=== PATIENT | female | born 1985 | race Caucasian/White ===

== ENCOUNTER 2016-10-21 09:32 | Emergency (ER) | payer MEDICAID ==
[~2016-10-21] VITALS: Ht 167.6 cm; Wt 77.4 kg
[~2016-10-21 09:32] MED LIST: LAMO200T PO; LORA0.5T PO; NITR100C56 PO; OXYC-302 PO
[2016-10-21 09:38] VITALS: BP 130/67
[2016-10-21] MEDS ORDERED: ONDANSETRON 2MG/ML, 2ML ONE (10:12)
[2016-10-21] MEDS ORDERED: MECLIZINE CHEWABLE 25 MG TAB ONE (10:12)
[2016-10-21] MEDS ORDERED: FAMOTIDINE 20 MG/2 ML ONE (10:12)
[2016-10-21] MEDS ORDERED: LORazepam 2 MG/ML, 1ML ONE (10:13)
[2016-10-21] MEDS ORDERED: ONDANSETRON 2MG/ML, 2ML IVPush ONE (10:30)
[2016-10-21] MEDS ORDERED: SODIUM CHLORIDE 0.9% 1,000ML IVBOLUS ONE (10:30)
[2016-10-21] MEDS ORDERED: MECLIZINE CHEWABLE 25 MG TAB PO ONE (10:30)
[2016-10-21] MEDS ORDERED: FAMOTIDINE 20 MG/2 ML IVP ONE (10:30)
[2016-10-21] MEDS ORDERED: LORazepam 2 MG/ML, 1ML IVPush ONE (10:30)
[2016-10-21] MEDS ORDERED: SODIUM CHLORIDE FLUSH 10ML SYR IVF ONE (10:30)
[2016-10-21 10:45] LABS: HEMOGLOBIN 12.6 g/dL (11.7-16.4)
[2016-10-21 10:46] LABS: ASPARTATE AMINO TRANSFERASE 13 U/L (15-37); BLOOD UREA NITROGEN 16 mg/dL (7-18)
[2016-10-21] MEDS ORDERED: FAMOTIDINE 20 MG TABLET ONE (10:57)
[2016-10-21] MEDS ORDERED: LORazepam 1MG TABLET ONE (10:57)
[2016-10-21] MEDS ORDERED: ONDANSETRON ODT 4 MG ONE (10:58)
[2016-10-21] MEDS ORDERED: FAMOTIDINE 20 MG TABLET PO ONE (11:00)
[2016-10-21] MEDS ORDERED: ONDANSETRON ODT 4 MG PO ONE (11:00)
[2016-10-21] MEDS ORDERED: LORazepam 0.5MG TABLET PO ONE (11:00)
== END 2016-10-21 11:50 | disposition home or self-care (01) ==
LOC: ED 10:30
DX: K29.00 Acute gastritis without bleeding (principal); R42 Dizziness and giddiness; F41.1 Generalized anxiety disorder; Z87.440 Personal history of urinary (tract) infections
CPT/HCPCS: 36415; 76700; 80053; 81003; 83690; 84703; 85025; 93005; 99285; Q0162

== ENCOUNTER 2016-12-05 12:07 | Emergency (ER) | payer MEDICAID ==
[~2016-12-05] VITALS: Ht 167.6 cm; Wt 77.6 kg
[2016-12-05] MEDS ORDERED: SODIUM CHLORIDE FLUSH 10ML SYR IVF ONE (13:00)
[2016-12-05] MEDS ORDERED: ONDANSETRON 2MG/ML, 2ML IVPush ONE (13:00)
[2016-12-05] MEDS ORDERED: FAMOTIDINE 20 MG/2 ML IVP ONE (13:00)
[2016-12-05] MEDS ORDERED: ONDANSETRON 2MG/ML, 2ML ONE (13:08)
[2016-12-05] MEDS ORDERED: FAMOTIDINE 20 MG/2 ML ONE (13:08)
[2016-12-05 13:25] LABS: ASPARTATE AMINO TRANSFERASE 10 U/L (15-37); BLOOD UREA NITROGEN 14 mg/dL (7-18)
[2016-12-05] MEDS ORDERED: OMNIPAQUE 350 MG/ML, 100ML BOTTLE ONE (14:30)
[2016-12-05 15:57] VITALS: BP 122/83
== END 2016-12-05 16:02 | disposition home or self-care (01) ==
LOC: ED 15:30
DX: R10.12 Left upper quadrant pain (principal); R10.13 Epigastric pain; G89.29 Other chronic pain
CPT/HCPCS: 36415; 74177; 80053; 83690; 84703; 85025; 96374; 96375; 99285; J2405; Q9967; S0028

== ENCOUNTER 2017-12-18 09:15 | Emergency (ER) | payer MEDICAID, OTHER ==
[~2017-12-18] VITALS: Ht 167.6 cm; Wt 82.8 kg
[~2017-12-18 09:15] MED LIST changes: -LAMO200T PO; +LAMO200T2 PO
[2017-12-18 09:24] VITALS: BP 126/81
[2017-12-18] MEDS ORDERED: ONDANSETRON ODT 4 MG ONE (10:24)
[2017-12-18] MEDS ORDERED: HYDROmorphone 1 MG/ML, 1ML ONE (10:25)
[2017-12-18] MEDS ORDERED: HYDROmorphone 1 MG/ML, 1ML IM ONE (10:30)
[2017-12-18] MEDS ORDERED: ONDANSETRON ODT 4 MG PO ONE (10:30)
[2017-12-18 10:31] LABS: MICROSCOPIC NOT IND
[2017-12-18 10:36] LABS: CULTURE INDICATED? NO
[2017-12-18 10:44] LABS: BASOPHILS # (AUTO) 0.11 x10^3/uL (0-0.1); BASOPHILS % (AUTO) 1 % (0-1); EOSINOPHILS % (AUTO) 1 % (1-7); LYMPHOCYTES # (AUTO) 2.64 x10^3/uL (1-3.4); LYMPHOCYTES % (AUTO) 28 % (22-44); MD NO; MEAN CORPUSCULAR HEMOGLOBIN 28.5 pg (27.0-34.8); MEAN CORPUSCULAR HGB CONC 33.6 g/dL (32.4-35.8); MEAN CORPUSCULAR VOLUME 85.1 fL (80-100); MEAN PLATELET VOLUME 8.1 fL (7.4-10.4); MONOCYTES % (AUTO) 6 % (2-9); NEUTROPHILS # (AUTO) 5.96 x10^3/uL (1.8-6.8); NEUTROPHILS % (AUTO) 63 % (42-75); PLATELET COUNT 335 x10^3/uL (130-400); RED BLOOD COUNT 4.66 x10^6/uL (3.82-5.3)
[2017-12-18 10:56] LABS: ANION GAP 9 mmol/L (5-15); CALCIUM 8.6 mg/dL (8.5-10.1); CHLORIDE 107 mmol/L (98-107)
[2017-12-18 11:01] LABS: ALANINE AMINOTRANSFERASE 29 U/L (12-78); ALKALINE PHOSPHATASE 77 U/L (45-117); BILIRUBIN,TOTAL 0.3 mg/dL (0.2-1.0); CREATININE 0.77 mg/dL (0.55-1.02); TOTAL PROTEIN 7.9 g/dL (6.4-8.2)
== END 2017-12-18 12:17 | disposition home or self-care (01) ==
LOC: ED 12:11
DX: N83.02 Follicular cyst of left ovary (principal); R10.2 Pelvic and perineal pain
CPT/HCPCS: 36415; 76830; 80053; 81003; 84703; 85025; 96372; 99285; J1170; Q0162

== ENCOUNTER 2017-12-21 17:08 | Emergency (ER) | payer OTHER ==
[~2017-12-21] VITALS: Ht 167.6 cm; Wt 85.5 kg
[2017-12-21] MEDS ORDERED: ONDANSETRON ODT 4 MG ONE (17:43)
[2017-12-21] MEDS ORDERED: MORPHINE SULFATE 4 MG/ML, 1ML ONE ×2 (18:00→19:30)
[2017-12-21] MEDS ORDERED: SODIUM CHLORIDE FLUSH 10ML SYR IVF ONE (18:00)
[2017-12-21] MEDS ORDERED: ONDANSETRON ODT 4 MG PO ONE (18:00)
[2017-12-21] MEDS ORDERED: KETOROLAC 30 MG/1 ML ONE (18:23)
[2017-12-21] MEDS: MORPHINE SULFATE 4 MG/ML, 1ML IVPush PRN ×2 (18:27→19:32)
[2017-12-21] MEDS ORDERED: KETOROLAC 30 MG/1 ML IVPush ONE (18:30)
[2017-12-21 18:35] LABS: BASOPHILS # (AUTO) 0.06 x10^3/uL (0-0.1); BASOPHILS % (AUTO) 1 % (0-1); EOSINOPHILS # (AUTO) 0.12 x10^3/uL (0-0.4); EOSINOPHILS % (AUTO) 1 % (1-7); LYMPHOCYTES # (AUTO) 2.82 x10^3/uL (1-3.4); LYMPHOCYTES % (AUTO) 24 % (22-44); MD NO; MEAN CORPUSCULAR HEMOGLOBIN 28.7 pg (27.0-34.8); MEAN CORPUSCULAR HGB CONC 33.6 g/dL (32.4-35.8); MEAN CORPUSCULAR VOLUME 85.4 fL (80-100); MEAN PLATELET VOLUME 8.1 fL (7.4-10.4); MONOCYTES # (AUTO) 0.82 x10^3/uL (0.2-0.8); MONOCYTES % (AUTO) 7 % (2-9); NEUTROPHILS # (AUTO) 8.02 x10^3/uL (1.8-6.8); NEUTROPHILS % (AUTO) 68 % (42-75); PLATELET COUNT 338 x10^3/uL (130-400); RED BLOOD COUNT 4.44 x10^6/uL (3.82-5.3); RED CELL DISTRIBUTION WIDTH 13.2 % (9.6-15.2)
[2017-12-21 18:37] LABS: ALANINE AMINOTRANSFERASE 30 U/L (12-78); ALBUMIN 4.2 g/dL (3.4-5.0); ANION GAP 7 mmol/L (5-15); CHLORIDE 109 mmol/L (98-107)
[2017-12-21 18:39] LABS: ALKALINE PHOSPHATASE 85 U/L (45-117); BILIRUBIN,TOTAL 0.3 mg/dL (0.2-1.0); CREATININE 0.87 mg/dL (0.55-1.02); TOTAL PROTEIN 7.7 g/dL (6.4-8.2)
[2017-12-21 19:41] LABS: MICROSCOPIC AUTO
[2017-12-21 19:42] LABS: CULTURE INDICATED? YES
[2017-12-21] MEDS ORDERED: HYDROcodone/APAP 5/325 TABLET ONE (20:14)
[2017-12-21] MEDS ORDERED: HYDROcodone/APAP 5/325 TABLET PO ONE (20:30)
[2017-12-21 20:32] VITALS: BP 137/83
== END 2017-12-21 20:36 | disposition home or self-care (01) ==
LOC: ED 19:24
DX: N20.2 Calculus of kidney with calculus of ureter (principal)
CPT/HCPCS: 36415; 76770; 80053; 81001; 84703; 85025; 87086; 96374; 96375; 96376; 99285; J1885; Q0162

== ENCOUNTER 2018-09-05 23:52 | Emergency (ER) | payer OTHER ==
[~2018-09-05] VITALS: Ht 167.6 cm; Wt 81.0 kg
[2018-09-06] MEDS ORDERED: MORPHINE SULFATE 4 MG/ML, 1ML ONE ×2 (00:24→01:09)
[2018-09-06] MEDS ORDERED: ONDANSETRON 2MG/ML, 2ML ONE ×2 (00:24→01:20)
[2018-09-06] MEDS ORDERED: ONDANSETRON 2MG/ML, 2ML IVPush ONE (00:30)
[2018-09-06] MEDS: MORPHINE SULFATE 4 MG/ML, 1ML IVPush PRN ×2 (00:31→01:14)
--- NOTE | 2018-09-06 00:59 | NUR ---
Pt reports DX of left sided kidney stone this am, reports increased/intolerable pain tonight. Denies any dysuria
--- NOTE | 2018-09-06 01:02 | NUR ---
REPORT RECEIVED FROM EDYTA OJEDA. ASSUMED CARE OF PT. PT STILL REPORTS "EXCRUCIATING PAIN".
[2018-09-06] MEDS ORDERED: KETOROLAC 30 MG/1 ML ONE (01:09)
--- NOTE | 2018-09-06 01:16 | NUR ---
PT MEDICATED PER EMAR. 5 RIGHTS ADDRESSED.
[2018-09-06] MEDS ORDERED: KETOROLAC 60 MG/2 ML IVPush ONE (01:30)
--- NOTE | 2018-09-06 01:32 | NUR ---
PT AMBULATORY TO RESTROOM, STEADY GAIT NOTED
--- NOTE | 2018-09-06 01:52 | NUR ---
PT REPORTS SHE IS STILL IN PAIN BUT NOT BAD, REPORTS 7/10. PT APPEARS TO BE MORE COMFORTABLE THAN BEFORE, LYING STILL IN BED, HOLDING LOWER ABD. VITALS STABLE. WILL CONTINUE TO MONITOR.
[2018-09-06] MEDS ORDERED: HYDROmorphone 1 MG/ML, 1ML ONE (02:02)
[2018-09-06] MEDS: HYDROmorphone 2 MG/ML, 1ML IVPush PRN ×2 (02:10→03:09)
--- NOTE | 2018-09-06 02:10 | NUR ---
PT MEDICATED PER EMAR. 5 RIGHTS ADDRESSED.
--- NOTE | 2018-09-06 02:12 | NUR ---
PT TO CT
--- NOTE | 2018-09-06 02:31 | NUR ---
PT BACK FROM CT. STATES PAIN HAS SUBSIDED, REPORTS FEELING "SORE". PT STATES "THIS IS DEFINITELY THE BEST I'VE FELT SINCE I'VE BEEN HERE". MOTHER REMAINS AT BEDSIDE. PT PROVIDED WITH PILLOW, SOCK AND ANOTHER WARM BLANKET. VITALS STABLE. WILL CONTINUE TO MONITOR. AWAITING CT RESULTS AT THIS TIME.
--- NOTE | 2018-09-06 03:08 | NUR ---
PT MEDICATED PER EMAR. PT STATES PAIN IS RETURNING. 5 RIGHTS ADDRESSED.
[2018-09-06 03:13] VITALS: BP 140/79
--- NOTE | 2018-09-06 03:13 | NUR ---
Patient/Caregiver given discharge instructions and they have confirmed that they understand the instructions. Patient ambulatory with steady gait.
== END 2018-09-06 03:15 | disposition home or self-care (01) ==
LOC: ED 09-06 01:23
DX: N13.2 Hydronephrosis with renal and ureteral calculous obstruction (principal)
CPT/HCPCS: 74176; 96374; 96375; 96376; 99284; J1170; J1885; J2405

== ENCOUNTER 2019-03-04 17:49 | Emergency (ER) | payer OTHER ==
[~2019-03-04] VITALS: Ht 167.6 cm; Wt 80.0 kg
[2019-03-04] MEDS ORDERED: KETOROLAC 30 MG/1 ML ONE (18:13)
[2019-03-04] MEDS ORDERED: ONDANSETRON 2MG/ML, 2ML ONE (18:13)
[2019-03-04] MEDS ORDERED: ONDANSETRON 2MG/ML, 2ML IVPush ONE (18:30)
[2019-03-04] MEDS ORDERED: KETOROLAC 30 MG/1 ML IVPush ONE (18:30)
--- NOTE | 2019-03-04 18:37 | NUR ---
PT STATES NAUSEA IMPROVED, PAIN SLIGHTLY BETTER. AMBULATORY TO RESTROOM TO ATTEMPT FOR URINE SAMPLE.
[2019-03-04 18:45] LABS: BASOPHILS # (AUTO) 0.04 x10^3/uL (0-0.1); BASOPHILS % (AUTO) 0 % (0-1); EOSINOPHILS # (AUTO) 0.08 x10^3/uL (0-0.4); EOSINOPHILS % (AUTO) 1 % (1-7); LYMPHOCYTES # (AUTO) 3.24 x10^3/uL (1-3.4); LYMPHOCYTES % (AUTO) 30 % (22-44); MD NO; MEAN CORPUSCULAR HEMOGLOBIN 28.9 pg (27.0-34.8); MEAN CORPUSCULAR HGB CONC 32.6 g/dL (32.4-35.8); MEAN CORPUSCULAR VOLUME 88.9 fL (80-100); MEAN PLATELET VOLUME 8.3 fL (7.4-10.4); MONOCYTES % (AUTO) 6 % (2-9); NEUTROPHILS # (AUTO) 6.96 x10^3/uL (1.8-6.8); NEUTROPHILS % (AUTO) 64 % (42-75); PLATELET COUNT 303 x10^3/uL (130-400); RED BLOOD COUNT 4.34 x10^6/uL (3.82-5.3); RED CELL DISTRIBUTION WIDTH 13.4 % (9.6-15.2)
[2019-03-04 18:51] LABS: ALANINE AMINOTRANSFERASE 24 U/L (12-78); ALBUMIN 4.2 g/dL (3.4-5.0); ANION GAP 7 mmol/L (5-15); CALCIUM 8.7 mg/dL (8.5-10.1); CHLORIDE 112 mmol/L (98-107); CREATININE 1.06 mg/dL (0.55-1.02)
[2019-03-04 18:54] LABS: ALKALINE PHOSPHATASE 66 U/L (45-117); BILIRUBIN,TOTAL 0.2 mg/dL (0.2-1.0); TOTAL PROTEIN 7.7 g/dL (6.4-8.2)
[2019-03-04 18:59] LABS: HCG UR SG 1.029 (1.003-1.030); MICROSCOPIC AUTO
[2019-03-04 19:02] LABS: CULTURE INDICATED? YES
[2019-03-04] MEDS ORDERED: MORPHINE SULFATE 4 MG/ML, 1ML IVPush ONE (19:30)
[2019-03-04] MEDS ORDERED: MORPHINE SULFATE 4 MG/ML, 1ML ONE (19:33)
[2019-03-04 20:05] VITALS: BP 114/58
== END 2019-03-04 20:16 | disposition home or self-care (01) ==
LOC: ED 20:15
DX: N20.1 Calculus of ureter (principal); Z87.891 Personal history of nicotine dependence; F41.1 Generalized anxiety disorder
CPT/HCPCS: 36415; 80053; 81001; 81025; 83690; 85025; 87086; 96374; 96375; 99283; J1885; J2270; J2405